=== PATIENT | male | born 1940 | race Caucasian/White ===

== ENCOUNTER 2020-12-31 09:34 | Inpatient (IN) | payer OTHER ==
[~2020-12-31] VITALS: Ht 182.9 cm; Wt 123.1 kg
[2020-12-31] VITALS (11 sets, daily range): BP systolic 98–142; BP diastolic 67–86
[2020-12-31 10:01] LABS: HEMOGLOBIN 14.4 gm/dL (14.0-18.0); MCH 29.3 pg (26.0-34.0); MCHC 33.5 g/dL (28.0-37.0); MCV 87.5 fL (80.0-100.0); PLATELET COUNT 350 thou/uL (150-400); RBC 4.92 mil/uL (4.50-6.00); RDW 15.7 % (10.5-14.5); WBC 16.5 thou/uL (4.0-11.0)
[2020-12-31] MEDS ORDERED: LASIX 40 MG TAB40 MG PO (10:21)
[2020-12-31] MEDS ORDERED: CARBIDOPA-LEVO1 EAC9 PO (10:21)
[2020-12-31] MEDS ORDERED: NUPLAZID34 MG PO (10:22)
[2020-12-31] MEDS ORDERED: REMERON 30 MG T30 M1 PO (10:22)
[2020-12-31] MEDS ORDERED: KLOR-CON 10 ER10 MEQ PO (10:23)
[2020-12-31] MEDS ORDERED: POTASSIUM20 PO (10:25)
[2020-12-31] MEDS ORDERED: PROTONIX40 M2 PO (10:26)
[2020-12-31] MEDS ORDERED: QUETIAPINE FUMA25 MG PO (10:26)
[2020-12-31] MEDS ORDERED: ZOLOFT100 MG PO (10:27)
[2020-12-31 10:31] LABS: ANION GAP 18 mmol/L (7-16); BUN 156 mg/dL (7-18); CALCIUM 9.4 mg/dL (8.5-10.1); CHLORIDE 96 mmol/L (98-107); CO2 22 mmol/L (21-32); CREATININE 10.6 mg/dL (0.7-1.3); GLUCOSE 115 mg/dL (74-106); SODIUM 136 mmol/L (136-145); TROPONIN-I <0.06 ng/mL (<0.06)
[2020-12-31 10:34] LABS: POTASSIUM 6.4 mmol/L (3.5-5.1)
[2020-12-31 11:07] LABS: ABSOLUTE NEUTROPHILS 13.9 thou/uL (1.4-8.2); METAMYELOCYTES 1 %; MYELOCYTES 1 %
--- NOTE | 2020-12-31 13:59 | NUR ---
PT ARRIVED TO THE UNIT AT 1350 ARRIVED WITH RN ESCORT, WEIGHT IS 126.7KG, BS WITHIN NORMAL LIMITS, TEMP 97.5 AXI, ON 4L AT HOB 40DEGREE SATTING AT 96% PT ABLE TO STATE BASIC SENTENCES BUT UNABLE TO COMMUNICATE COMPLEX SENTENCES. UNKOWN BASELINE. DEMENTIA HISTORY. ALY IS BLOODY/RED COLORED. CT ABD/PEL SHOWED KIDNEY STONE. PT DID NOT HAVE ANY BELONGINGS IN. PT ALSO HAD EXCORIATION AT THE BOTTOM. PICTURE TAKEN. CLRT WILL BE ON, WOUND CARE CONSULT WILL BE NOTIFIED
[2020-12-31 15:12] LABS: CALCIUM 8.9 mg/dL (8.5-10.1); POTASSIUM 5.5 mmol/L (3.5-5.1)
--- NOTE | 2020-12-31 15:12 | EKG ---
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 : 1940 Requested By: Roshan Gabriel Order Number: [id number] MD: Augie Hernandez Measurements Intervals [place] Rate: 91 P: 15 LA: 220 QRS: 13 QRSD: 120 T: 20 QT: 346 QTc: 426 Interpretive Statements Sinus rhythm Prolonged LA interval Repolarization abnormality Nonspecific intraventricular conduction delay No previous ECG available for comparison Electronically Signed On 12-31-2020 15:12:25 CDT by Augie Hernandez [email or web address] <ELECTRONICALLY SIGNED> By: Augie Hernandez MD, [facility] 12/31/20 1512 [id number] Augie Hernandez MD, FACC /EPI
[2020-12-31 15:17] LABS: CREATININE 8.1 mg/dL (0.7-1.3)
--- NOTE | 2020-12-31 18:40 | NUR ---
Patient progressing towards plan of care as evidenced by decrease course lung sounds, trending down potassium levels. Patients designated spokes person, his significant other, was here and visit for a while at bedside. She was updated on plan of care and her questions were answered. Plan of care is to continue treatments as ordered by physician and monitor assessments.
[2021-01-01] VITALS (22 sets, daily range): BP systolic 101–130; BP diastolic 51–85
[2021-01-01] MEDS ORDERED: BRIMONIDINE 0.110 ML EA. EYE (02:10)
[2021-01-01 02:40] LABS: URINE BILIRUBIN NEGATIVE (Negative); URINE BLOOD 3+ (Negative); URINE CLARITY SL CLOUDY; URINE GLUCOSE-RANDOM* NEGATIVE (Negative); URINE KETONES NEGATIVE (Negative); URINE LEUKOCYTES-REFLEX 1+ (Negative); URINE NITRITE-REFLEX NEGATIVE (Negative); URINE PROTEIN (DIPSTICK) NEGATIVE (Negative)
[2021-01-01 02:41] LABS: URINE COLOR YELLOW
[2021-01-01 02:59] LABS: BACTERIA-REFLEX 1-9 Few /HPF (None Seen); CASTS None Seen /LPF (None Seen); MUCUS 0-3 Light strn/LPF (None Seen); SQUAMOUS 0-3 Few /LPF (0-3); URIC ACID CRYSTALS >10 Many /LPF (None Seen); URINE RBC >20 Many /HPF (0-2); URINE WBC-REFLEX 6-15 Few /HPF (0-5)
[2021-01-01 05:20] LABS: HEMATOCRIT 44.1 % (42.0-52.0); HEMOGLOBIN 14.2 gm/dL (14.0-18.0); MCH 28.7 pg (26.0-34.0); MCHC 32.3 g/dL (28.0-37.0); RBC 4.96 mil/uL (4.50-6.00); RDW 15.7 % (10.5-14.5); WBC 16.5 thou/uL (4.0-11.0)
--- NOTE | 2021-01-01 05:31 | NUR ---
ASSUMED CARE OF PATIENT AT 1900. ORAL TEMP READING LOW, RECTAL THERMOMETER PLACED. TEMP WITHIN NORMAL RANGE. PATIENT ANSWERS SOME QUESTIONS, AND FOLLOWS COMMANDS. UA SENT PER DR PERRY. WORKING TOWARDS POC GOALS.
[2021-01-01 06:07] LABS: CALCIUM 9.2 mg/dL (8.5-10.1); CREATININE 4.4 mg/dL (0.7-1.3); MAGNESIUM 2.8 mg/dL (1.8-2.4); POTASSIUM 4.6 mmol/L (3.5-5.1)
--- NOTE | 2021-01-01 11:05 | NUR ---
chart review. discussed during am rounds. unable to visit with him, rt resting with eyes closed. did not pass his video swallow test today. from [facility] [place], will check if skilled vs ltc. noted on o2 per nasal cannula.
--- NOTE | 2021-01-01 12:34 | NUR ---
WOUND CONSULT; THE PATIENT'S COCCYX/SACRUM WAS ASSESSED. THERE IS A FISSURE-LIKE WOUND APPROX 6 X 0.3 X 0.1. LIKLEY INCONTINCE/MOISTURE RELATED SKIN BREAKDOWN. NO OBVIOUS S/S OF INFECTION.SCANT SEROSANGUINOUS DRAINAGE. RECOMMENDATIONS; -APPLY ZGUARD BID/PRN. -TURN THIS PATIENT Q2H AT A MINIMUM.. RN PRESENT.
--- NOTE | 2021-01-01 18:42 | NUR ---
ASSUMED CARE AT 0700, ASSESSMENT AND VITAL SIGNS COMPLETED PER ICU PROTOCOL. PT'S HAS BEEN BEDSIDE THIS AFTERNOON, UPDATE PROVIDED TO .
[2021-01-02] VITALS (8 sets, daily range): BP systolic 103–121; BP diastolic 53–67
[2021-01-02 02:18] LABS: ALBUMIN 2.1 g/dL (3.4-5.0); CALCIUM 8.7 mg/dL (8.5-10.1); PHOSPHORUS 3.2 mg/dL (2.5-4.9); POTASSIUM 4.2 mmol/L (3.5-5.1)
[2021-01-02 02:19] LABS: CREATININE 1.7 mg/dL (0.7-1.3)
--- NOTE | 2021-01-02 07:43 | NUR ---
ASSUMED CARE AT 1900. PT SLIGHTLY RESTLESS, PICKING AT TAPE AND O2, TUGGING AT PILLOWS AND BLANKETS. UNABLE TO GIVE PSYCH MEDS D/T NPO STATUS; OBTAINED ONE TIME ORDER FOR HALDOL WHICH HELPED PT TO REST OVERNIGHT. SPOKE W/DR. PERRY AT BEDSIDE ABOUT 0; HE WANTED TO MAKE SURE ALY STAYED IN D/T HIGH RETENTION, ASKED IF UROLOGY PLANNED TO PLACE A SUPRAPUBIC CATH; HE ALSO SUGGESTED PLACING AN NG TUBE FOR TUBE FEEDS. THIS AM, PT AGAIN TAKING O2 OFF AND TRYING TO PICK AT IV. MODERATE AMOUNT OF THICK WHITE/YELLOW SPUTUM COUGHED UP AND SUCTIONED W/NALINI. 1100 ML TEA COLORED URINE OUT OVERNIGHT. NO OTHER CONCERNS, SHIFT REPORT GIVEN 0700.
[2021-01-02 08:29] LABS: HEMATOCRIT 39.5 % (42.0-52.0); HEMOGLOBIN 12.7 gm/dL (14.0-18.0); MCH 28.5 pg (26.0-34.0); MCV 89.1 fL (80.0-100.0); RBC 4.44 mil/uL (4.50-6.00); RDW 15.9 % (10.5-14.5); WBC 12.9 thou/uL (4.0-11.0)
--- NOTE | 2021-01-02 09:37 | NUR ---
Note Given: Y Facility List Provided:Y Facility Valeria: None chosen at this time Delia Blackwood NP discussed BPCI with this pt 01/02/2021
--- NOTE | 2021-01-02 12:23 | NUR ---
chart review. discussed during los and am rounds. possible transfer out of icu. hospitalist to discuss possible peg and supra pubic cath if needed with . no anticipated dc back to skilled rehab at [facility] over the weekend. will cont following as needed for dc needs.
--- NOTE | 2021-01-02 18:54 | NUR ---
ASSUMED CARE OF PT AT APPROX 1230 FROM ICU. PT ALERT TO SELF, FOLLOWS SIMPLE COMMANDS, ANSWERS Y/N QUESTIONS. NPO D/T SWALLOW TEST FAILURE. NO APPARENT PAIN. WILL CONTINUE TO MONITOR FOR CHANGES AND FOLLOW POC.
[2021-01-03 04:19] LABS: CALCIUM 8.4 mg/dL (8.5-10.1); CREATININE 1.2 mg/dL (0.7-1.3); MAGNESIUM 2.3 mg/dL (1.8-2.4); POTASSIUM 3.6 mmol/L (3.5-5.1)
[2021-01-03 04:37] VITALS: BP 126/52
[2021-01-03 04:43] LABS: HEMATOCRIT 37.7 % (42.0-52.0); HEMOGLOBIN 12.3 gm/dL (14.0-18.0); MCHC 32.6 g/dL (28.0-37.0); MCV 88.9 fL (80.0-100.0); RBC 4.24 mil/uL (4.50-6.00); RDW 15.7 % (10.5-14.5); WBC 11.1 thou/uL (4.0-11.0)
--- NOTE | 2021-01-03 06:25 | NUR ---
PROVIDER CONTACTED ABOUT PATIENTS LOW URINARY OUTPUT. NURSE TOLD TO CONTINUE TO ASSESS AND GIVE DETAILED REPORT TO ONCOMING RN. NO INTERVENTIONS ORDERED.
[2021-01-03 08:22] VITALS: BP 130/67
[2021-01-03 12:16] VITALS: BP 136/66
[2021-01-03 15:50] VITALS: BP 123/72
--- NOTE | 2021-01-03 17:46 | NUR ---
PT ALERT TO SELF. BLADDER SCAN SHOWED MORE THAN 1000 IN THE BLADDER THIS AM. ALY IRRIGATED. URINE OUT PUT [address] DURHAM AWARE. NO CONCERNS AT THIS TIME.
[2021-01-03 19:16] VITALS: BP 137/70
[2021-01-04 04:19] VITALS: BP 140/64
[2021-01-04 05:11] LABS: HEMOGLOBIN 13.2 gm/dL (14.0-18.0); MCH 29.3 pg (26.0-34.0); MCV 88.9 fL (80.0-100.0); RBC 4.49 mil/uL (4.50-6.00); RDW 15.8 % (10.5-14.5); WBC 11.2 thou/uL (4.0-11.0)
[2021-01-04 05:15] LABS: CALCIUM 8.2 mg/dL (8.5-10.1); CREATININE 1.1 mg/dL (0.7-1.3); POTASSIUM 3.9 mmol/L (3.5-5.1)
[2021-01-04 08:00] VITALS: BP 126/66
[2021-01-04 11:15] VITALS: BP 122/63
[2021-01-04 15:25] VITALS: BP 134/63
[2021-01-04 19:39] VITALS: BP 118/71
--- NOTE | 2021-01-04 21:28 | HC ---
[facility] [place] [address] CONSULTATION Name: SHREYA NICOLE Room #: 219-P ADM IN M.R.#: [id number] Admission: 12/31/20 Attend Phys: Seth Heath MD Discharge: Date of : 38 Report #: [id number] THIS REPORT FOR: cc: GISELLE - No family physician/PCP FAM - No family physician/PCP Alexia Cote MD ~ RENAL CONSULTATION REASON FOR CONSULTATION: Acute kidney injury. REASON FOR PRESENTATION: Failure to thrive and falling. HISTORY OF PRESENT ILLNESS: Obtained from the medical chart. The patient was at [facility] for failure to thrive and falling and was then sent to a nursing facility. He is not able to provide me with any history. His nursing facility was concerned about his shortness of breath. They sent him to the Emergency Room. In the Emergency Room, the patient was found to have significantly elevated creatinine and potassium mandating Nephrology consultation. Unfortunately, I do not have any available details about his previous medical history. I also do not have any details about his previous medications or kidney disease. However, it does look like that the patient has been receiving significant diuresis and potassium supplementation in his nursing facility. PAST MEDICAL HISTORY: All what is available is history of dementia. No other details available. ALLERGIES: None per medical record. FAMILY HISTORY: Unobtainable given the patient's current mental status. SOCIAL HISTORY: Sent from the nursing facility. No other details available. REVIEW OF SYSTEMS: Unavailable given the patient's current mental status. PHYSICAL EXAMINATION: VITAL SIGNS: Blood pressure is 101/61. HEAD AND NECK: No jugular venous distention. CHEST: No crackles. CARDIOVASCULAR: No rub. ABDOMEN: Soft, nontender. EXTREMITIES: Lower extremities, no edema. LABORATORY DATA: White blood cell count 16.5, hemoglobin 14.2. Sodium 145, carbon dioxide 18, potassium is down to 4.6, BUN is 99, creatinine is down to 4.4. [facility] [address] [place] [address] CONSULTATION Name: SHREYA NICOLE Room #: 219-P [facility] IN M.R.#: [id number] Admission: 12/31/20 Attend Phys: Seth Heath MD Discharge: Date of : 38 Report #: [id number] ASSESSMENT AND PLAN: 1. Acute kidney injury due to obstruction, urinary retention. 2. Aspiration pneumonia. 3. Hyperkalemia. 4. Acute kidney injury, hyperkalemia, seems to be related to volume depletion. 5. Initiate IV fluid. 6. Hyperkalemia, resolved. 7. No evidence of hydronephrosis. 8. Continue to follow and I expect his kidney function to continue to improve with hydration. <ELECTRONICALLY SIGNED> By: Alexia Cote MD 01/04/21 2128 [id number] Alexia Cote MD /nt
[2021-01-05 03:12] LABS: HEMATOCRIT 37.9 % (42.0-52.0); HEMOGLOBIN 12.6 gm/dL (14.0-18.0); MCH 29.3 pg (26.0-34.0); MCHC 33.2 g/dL (28.0-37.0); MCV 88.3 fL (80.0-100.0); RBC 4.29 mil/uL (4.50-6.00); RDW 15.6 % (10.5-14.5); WBC 11.8 thou/uL (4.0-11.0)
[2021-01-05 05:11] VITALS: BP 116/60
--- NOTE | 2021-01-05 05:15 | NUR ---
ASSUME CARE 1900. PT/ VITALS STABLE. NO APPARENT PAIN NOTED. VERY POOR TOLERANCE TO ACTIVITY. A/O TO SELF AND RESPONDS TO VERBAL STIMULI. PT ANSWERS TO NAME AND SEEMS TO FOLLOW COMMANDS APPROPRIATELY. SR/1D AVB ON MONITOR WITH CONTROLLED HR. ASSESSMENT CHARTED. PROGRESSING POORLY TOWARDS POC. PALLIATIVE CARE CONSULTED. WILL CONTINUE TO MONITOR AND FOLLOW WITH POC
[2021-01-05 08:00] VITALS: BP 106/58
[2021-01-05 12:04] VITALS: BP 116/61
--- NOTE | 2021-01-05 13:26 | NUR ---
FAXED CLINICAL UPDATE TO [facility] SPOKE WITH VANCE IN ADM HE RECEIVED UPDATE.
[2021-01-05 16:00] VITALS: BP 125/69
--- NOTE | 2021-01-05 17:07 | NUR ---
Dr Mayes consult he sp with s/o and ordered Hospice eval. Casemgt also sp with s/o and she reports interest in their eval. Faxed clinical information for review. Hospice can eval tomorrow in am with onsight eval s/o aware. Updated Reddy.
[2021-01-05 21:09] VITALS: BP 104/53
[2021-01-06 04:23] VITALS: BP 102/65
--- NOTE | 2021-01-06 04:38 | NUR ---
RECEIVED CARE OF THIS PATIENT FROM CCU VIA BED ACCOMPANIED BY CCU PERSONEL. PATIENT SLEEPY BUT AWAKENS EASY FOR ASSESSMENT. PATIENT NOT COOPERATIVE WITH ASSESSMENT. DOES NOT APPEAR TO BE IN ANY PAIN. WILL LOOD AT YOU WHEN NAME IS CALLED. NOT ABLE TO ASSESS WHETHER PATIENT IS ORIENTED TO ANYTHING ELSE. SLEPT MOST OGF NIGHT.
[2021-01-06 07:15] VITALS: BP 96/62
--- NOTE | 2021-01-06 08:10 | NUR ---
BPCI ADVANCED PLACED ON PATIENTS CHART FOR REVIEW BY FAMILY OR CAREGIVER WHEN RETURN.
[2021-01-06] MEDS ORDERED: FLOMAX0.4 MG PO (13:22)
[2021-01-06] MEDS ORDERED: AMOX TR-K CLV1 EAC4 PO (13:23)
--- NOTE | 2021-01-06 14:03 | NUR ---
ON-GOING ASSESSMENT: CM REVIEWED CHART. PT MOVED TO 4S FROM . PLANS ARE FOR PATIENT TO GO TO [place] TODAY WITH HOSPICE. [facility] CAME TO EVAL PT THIS AM AND HAS ACCEPTED PT. SHE REPORTS THEY WILL ADMIT THE PT AT [place] TO THEIR SERVICES THIS EVENING AT 6PM. CM SPOKE WITH PATIENTS SIGNIFICANT OTHER JESSICA WARD WHO IS AGREEABLE WITH PLAN. PT WAS AT [facility] BUT SHE REPORTS THE PLAN WAS FOR PATIENT WAS TO TRANSITION TO LTC ANYWAYS SO HE WILL RETURN TO LTC IMMEDIATELY AT DISCHARGE WITH HOSPICE. CM NOTIFIED VANCE IN ADMISSIONS AT [place] [phone] WHO REPORTS THEY CAN ACCEPT PT BACK TODAY. PT WILL BE GOING TO A SEMI PRIVATE ROOM FOR LTC COSTING 178/DAY. JESSICA IS AWARE AND AGREEABLE. CHART COPY WAS ORDERED. CM FAXED DISCHARGE PAPERWORK TO [place] AND CONFIRMED THEY RECEIVED IT WELL HOSPICE. AMBULANCE WAS ARRANGED TO [facility] IN [employer] PATIENT AT 1500. BEDSIDE RN AWARE AND HAS THE NUMBER FOR REPORT. OUTSIDE DNR FORM IS SIGNED AND ON CHART FOR TRANSFER.
--- NOTE | 2021-01-06 15:02 | NUR ---
ASSUMED CARE OF PT AT 0700 THIS MORNING. PT WAS ADMITTED FOR RENAL INSUFF, HYPERKALEMIA AND PNEUMONIA. PT IA ALERT TP SELF ONLY AND IS CONFUSED AND FORGETFUL. PT HAS COURSE LUNG SOUNDS. SKIN INTACT EXCEPT THE COCCYX, SACRAL AREA WHICHHAS A NONHEALED ULCERATION. W/D/P, EYES PERRLA, PT DOES NOT SPEAK CLEARLY, USUALLY IN MOANS AND GARBAL. HYPO BOWEL SOUNDS. ABD SOFT NONTENDER. ASSESSMENT OTHERWISE UNREMARKABLE.
--- NOTE | 2021-01-08 10:05 | HC ---
[facility] [place] [address] CONSULTATION Name: SHREYA NICOLE Room #: 436-P [facility] IN M.R.#: [id number] Admission: 12/31/20 Attend Phys: Seth Heath MD Discharge: 01/06/21 Date of : 38 Report #: [id number] THIS REPORT FOR: cc: FAM - No family physician/PCP FAM - No family physician/PCP Madi Zhou MD ~ DATE OF SERVICE: 01/05/2021 CHIEF COMPLAINT: Coccyx and heel ulcers. HISTORY OF PRESENT ILLNESS: This is an 80-year-old male patient with a history of severe dementia and Parkinson's disease. He lives at a nursing care facility. The patient apparently had been at [facility] for failure to thrive and he was sent here because of increasing dyspnea. It is felt that he may have had an aspiration event. He was noted to have ulcerations on his heels and I have been asked to see him with regard to wound care. The patient does not answer any specific questions here. PAST MEDICAL HISTORY: Positive for history of dementia, Parkinson's disease, acute pulmonary edema, psychotic disorder with hallucinations, hyperlipidemia, and anxiety disorder. SOCIAL HISTORY: The patient currently lives in a nursing care facility, unknown if he has ever smoked or used alcohol. FAMILY HISTORY: Unknown. MEDICATIONS: Carbidopa/levodopa, Lasix, Remeron, Nuplazid, Klor-Con, K-Dur, Protonix, quetiapine, Zoloft. ALLERGIES: No known drug allergies. REVIEW OF SYSTEMS: Not obtainable due to the patient's significant dementia. PHYSICAL EXAMINATION: VITAL SIGNS: At this time include temperature 36.7, pulse 78, respiratory rate 18, blood pressure 125/69. GENERAL: This is a chronically ill-appearing male patient who appears to be resting quietly. He does not answer questions. HEENT: Head normocephalic. NECK: Supple. LUNGS: Diminished. HEART: Irregular. ABDOMEN: Soft, nontender. BACK AND PELVIC: Region demonstrates what appears to be a shallow stage 3 [facility] [address] [address] CONSULTATION Name: SHREYA NICOLE Room #: 436-P [facility] IN M.R.#: [id number] Admission: 12/31/20 Attend Phys: Seth Heath MD Discharge: 01/06/21 Date of : 38 Report #: [id number] coccygeal pressure ulceration. It is relatively clean. No exposure of deep structure is not overtly infected. EXTREMITIES: Lower extremities demonstrate a normal capillary refill. Distal pulses are difficult to palpate, however. He has a small deep tissue injuries to the posterior aspects of both heels. There was a little bit of dry skin that was peeled away revealing that the epidermis remains intact with discoloration and a little bit of softness, each area is smaller than the size of a dime. NEUROLOGIC: The patient is unable to answer any questions. He appears to have some symmetrical motor movement spontaneously. LABORATORY DATA: White blood cell count 11.8 with a hemoglobin of 12.6, hematocrit 37.9. Sodium 142, potassium 3.9, chloride 105, CO2 of 28, BUN 21, creatinine 1.1, glucose 124, albumin is 2.0. CLINICAL IMPRESSION: 1. Stage 3 coccygeal pressure ulceration. 2. Deep tissue injuries to both posterior heels. 3. Severe protein-calorie malnutrition. 4. Advanced dementia. 5. Sepsis secondary to aspiration pneumonia with acute hypoxic respiratory failure. 6. Advanced Parkinson's disease. 7. Hypertension. RECOMMENDATIONS: At this point in time, the patient will be placed in PRAFO boots for pressure prophylaxis of the heels. No specific topical treatment will be required at this time. We will recommend moisture barrier cream to the coccyx, low air loss pump on the bed, q.2 hour turning and repositioning. I appreciate being asked to see the patient in consultation. <ELECTRONICALLY SIGNED> By: Madi Zhou MD 01/08/21 1005 [id number] [id number] Madi Zhou MD /nt
== END 2021-01-06 16:49 | disposition hospice, inpatient (51) | DRG 871 ==
LOC: ER 09:34 → ICU 11:58 → 2N 11:58 → EROBS 11:58 → ICU 14:05 → 2N 01-02 12:36 → 4S 01-05 23:03
PROVIDERS: Emergency Medicine; Hospitalist; Specialist; ADMIT Internal Medicine; ATTEND Internal Medicine
DX: A41.9 Sepsis, unspecified organism (principal); L89.153 Pressure ulcer of sacral region, stage 3; J96.01 Acute respiratory failure with hypoxia; J69.0 Pneumonitis due to inhalation of food and vomit; E43 Unspecified severe protein-calorie malnutrition; N17.9 Acute kidney failure, unspecified; N39.0 Urinary tract infection, site not specified; E87.0 Hyperosmolality and hypernatremia; N13.8 Other obstructive and reflux uropathy; Z20.822 Contact with and (suspected) exposure to COVID-19; E87.5 Hyperkalemia; E86.9 Volume depletion, unspecified; G20 Parkinson's disease; F02.80 Dementia in other diseases classified elsewhere, unspecified severity, without behavioral disturbance, psychotic disturbance, mood disturbance, and anxiety; Z66 Do not resuscitate; I10 Essential (primary) hypertension; R13.10 Dysphagia, unspecified; R33.8 Other retention of urine; N40.1 Benign prostatic hyperplasia with lower urinary tract symptoms; N31.1 Reflex neuropathic bladder, not elsewhere classified; E78.5 Hyperlipidemia, unspecified; F41.9 Anxiety disorder, unspecified; S90.32XA Contusion of left foot, initial encounter; S90.31XA Contusion of right foot, initial encounter; X58.XXXA Exposure to other specified factors, initial encounter; Y93.89 Activity, other specified; Y92.89 Other specified places as the place of occurrence of the external cause; Y99.8 Other external cause status; Z68.36 Body mass index [BMI] 36.0-36.9, adult
CPT/HCPCS: 10078; 10081; 10102; 10194